=== PATIENT | female | born 1945 | race Caucasian/White ===

== ENCOUNTER 2016-09-08 10:40 | Emergency (ER) | payer MEDICARE ==
[2016-09-08] MEDS ORDERED: Ketorolac Tromethamine 60 MG/2 ML VIAL ONE (10:59)
== END 2016-09-08 11:19 | disposition home or self-care (01) ==
LOC: BURERS 10:42
DX: S39.012A Strain of muscle, fascia and tendon of lower back, initial encounter (principal); F32.9 Major depressive disorder, single episode, unspecified; Z79.82 Long term (current) use of aspirin; W18.30XA Fall on same level, unspecified, initial encounter
CPT/HCPCS: 96372; J1885

== ENCOUNTER 2016-09-09 18:38 | Emergency (ER) | payer MEDICARE ==
[2016-09-09] MEDS ORDERED: HYDROcodone/Acetaminophen 10/325 mg Tablet ONE (18:59)
[2016-09-09] MEDS ORDERED: Ibuprofen 800 MG TAB ONE (18:59)
[2016-09-09] MEDS ORDERED: Orphenadrine Citrate 60 MG/2 ML VIAL ONE (19:46)
[2016-09-09] MEDS ORDERED: predniSONE 20 MG TAB ONE (19:48)
[2016-09-09] MEDS ORDERED: Acetaminophen/Codeine 30-300mg Tablet ONE (19:48)
--- NOTE | 2016-09-10 15:03 | CT ---
CT OF THE LUMBAR SPINE: DATE: 09/09/16. FINDINGS: Spiral CT of the lumbar spine was performed for evaluation of back pain following an injury. Axial slices were acquired, then coronal and sagittal reconstructions were done. There is a very mild compression of the T12 vertebral body. I am not convinced that this is acute. This should be correlated with any site of pain. The patient does have lumbar scoliosis convex rig ht, which is obviously putting some substantial forces upon the lumbar spine. There are very promin ent lateral osteophytes originating from the vertebra at the apex of the curve on the left side. Fi ndings by level follow: T10-T11: Osteophytes, but no acute findings. T11-T12: Irregular end plates, but no acute findings. T12-L1: The T12 vertebra shows a slight anterior compression. As stated above, this may not be acu te. There is no sign of stenosis. L1-L2: Osteophytes, but no acute findings. L2-L3: There is considerable end plate sclerosis of L2 with a far lateral bulge of this disk on the left. Nevertheless, it does not appear to cause neural impingement. There is a mild degree of blaise tral canal stenosis at this level. L3-L4: The disk bulges far laterally at this level as well, but probably does not cause any impinge ment. There is no significant foraminal stenosis. L4-L5: The disk space is narrowed. There is slight crowding of the thecal sac but not really any s ignificant central canal or foraminal stenosis. L5-S1: There is a lateral bulge of this disk which probably contacts the L5 root. Impingement is p ossible of the right L5 root. The sacrum appeared intact. No areas of bony destruction were seen here. The right lobe of the liver posteriorly has a 4 cm cystic lesion in it. It is probably just a simpl e cyst, but an elective ultrasound would be prudent to be certain. Additionally, the collecting sys tem of the right kidney and the right ureter throughout its visualized extent seems mildly prominent in size. This may or may not be significant. The distal ureter is not shown on this study. IMPRESSION: 1. Mild compression of T12, not necessarily new. 2. Lateral disk on the right at L5-S1 that may impinge upon the right L5 root. 3. Severe degenerative disk disease with multilevel locations. End plate sclerosis, particularly i ntense at L2-L3. 4. Slight central canal stenosis at L2-L3 and L3-L4. 5. A 4 cm cystic lesion of the right lobe of the liver. Statistically most likely a simple cyst, b ut an ultrasound is recommended electively to be sure that it is merely that and nothing more. 6. Mild prominence of right ureter and right collecting system. Preliminary report discussed with Dr. Jack at 1925 on 09/09/16. Written temporary report entered at 1930. CODE CR POS: HOME
== END 2016-09-09 20:15 | disposition home or self-care (01) ==
LOC: BURERS 18:38
DX: M51.36 Other intervertebral disc degeneration, lumbar region (principal); M47.816 Spondylosis without myelopathy or radiculopathy, lumbar region; K76.89 Other specified diseases of liver; Z79.82 Long term (current) use of aspirin; Z79.899 Other long term (current) drug therapy
CPT/HCPCS: 72131; 96372; J2360; J7506

== ENCOUNTER 2017-01-09 09:52 | Outpatient (CLI) | payer MEDICARE ==
[2017-01-09 10:21] LABS: #Basophils 0.1 thou/uL (0.0-0.2); #Eosinphils 0.5 thou/uL (0.0-0.7); #Monocytes 0.7 thou/uL (0.11-0.59); #Neutrophils 2.7 thou/uL (1.40-6.50); %Basophils 2.2 % (0.0-1.0); %Eosinophils 8.7 % (0.0-10.0); %Lymphocytes 33.3 % (21.0-51.0); %Monocytes 11.6 % (0.0-10.0); %Neutrophils 44.3 % (42.0-75.0); Hemoglobin 14.3 g/dL (12.0-16.0); Mean Corpuscular HGB CONC 32.9 g/dL (32.0-36.0); Mean Corpuscular Hemoglobin 31.2 pg (27.0-31.0); Mean Corpuscular Volume 94.8 fl (81.0-99.0); Mean Platelet Volume 8.7 fL (7.4-10.4); Platelet Count 213 thou/uL (130-400); RBC Distribution Width 12.9 % (11.5-14.5); Red Blood Cell (RBC) Count 4.57 mill/uL (4.20-5.40)
[2017-01-09 10:39] LABS: ALT (SGPT) 20 U/L (8-55); AST (SGOT) 20 U/L (5-34); Albumin 4.2 g/dL (3.4-4.8); Alkaline Phosphatase 69 U/L (40-150); Anion Gap 16 mmol/L (10-20); BUN (Urea Nitrogen) 13 mg/dL (9.8-20.1); Bilirubin, Total 0.7 mg/dL (0.2-1.2); Calc. Creatinine Clearance 0 mL/min (70-130); Calcium 9.4 mg/dL (7.8-10.44); Carbon Dioxide 24 mmol/L (23-31); Chloride 106 mmol/L (98-107); Estimated GFR-MDRD 70; Globulin 2.8 g/dL (2.4-3.5); Glucose 88 mg/dL (83-110); Potassium 4.7 mmol/L (3.5-5.1); Sodium 141 mmol/L (136-145)
== END 2017-01-09 09:53 | disposition home or self-care (01) ==
LOC: BURLAB 09:52
PROVIDERS: ATTEND Internal Medicine
DX: F32.9 Major depressive disorder, single episode, unspecified (principal)
CPT/HCPCS: 36415; 80053; 85025

== ENCOUNTER 2020-11-13 19:09 | Emergency (ER) | payer MEDICARE ==
[~2020-11-13 19:09] MED LIST: Iopamidol 370 76% 100 ML VIAL ONE
[2020-11-13] MEDS ORDERED: Bisacodyl 10 MG SUPP ONE (19:14)
[2020-11-13] MEDS ORDERED: Ondansetron PF 4 MG/2 ML Vial ONE ×2 (19:44→21:46)
[2020-11-13 19:51] LABS: #Basophils 0.1 thou/uL (0.0-0.2); #Eosinphils 0.1 thou/uL (0.0-0.7); #Lymphocytes 1.3 thou/uL (1.20-3.40); #Monocytes 0.8 thou/uL (0.11-0.59); #Neutrophils 9.6 thou/uL (1.40-6.50); %Basophils 1.1 % (0.0-1.0); %Eosinophils 0.6 % (0.0-10.0); %Lymphocytes 10.7 % (21.0-51.0); %Monocytes 6.4 % (0.0-10.0); %Neutrophils 81.2 % (42.0-75.0); Hemoglobin 14.5 g/dL (12.0-16.0); Mean Corpuscular HGB CONC 33.1 g/dL (32.0-36.0); Mean Corpuscular Volume 99.7 fL (78.0-98.0); Mean Platelet Volume 8.5 fL (7.4-10.4); Platelet Count 222 thou/uL (130-400); RBC Distribution Width 11.5 % (11.5-14.5); Red Blood Cell (RBC) Count 4.39 mill/uL (4.20-5.40); White Blood Cell (WBC) Count 11.8 thou/uL (4.8-10.8)
[2020-11-13 20:06] LABS: ALT (SGPT) 20 U/L (8-55); AST (SGOT) 24 U/L (5-34); Albumin 3.9 g/dL (3.4-4.8); Alkaline Phosphatase 58 U/L (40-110); Anion Gap 18 mmol/L (10-20); BUN (Urea Nitrogen) 17 mg/dL (9.8-20.1); Bilirubin, Total 0.4 mg/dL (0.2-1.2); Calc. Creatinine Clearance 0 mL/min (70-130); Calcium 9.1 mg/dL (7.8-10.44); Carbon Dioxide 23 mmol/L (23-31); Chloride 102 mmol/L (98-107); Globulin 3.4 g/dL (2.4-3.5); Glucose 101 mg/dL (83-110); Potassium 4.3 mmol/L (3.5-5.1); Protein, Total 7.3 g/dL (5.8-8.1); Sodium 139 mmol/L (136-145)
[2020-11-13] MEDS ORDERED: Fleet Enema 133 ML BOT ONE (20:52)
[2020-11-13] MEDS ORDERED: Magnesium Citrate 300 ML BOT ONE (21:10)
[2020-11-13] MEDS ORDERED: Morphine 4 MG/ML VIAL ONE (21:46)
== END 2020-11-13 22:35 | disposition home or self-care (01) ==
LOC: BURERS 19:09
DX: K56.41 Fecal impaction (principal)
CPT/HCPCS: 74177; 80053; 85025; 96374; 96375; 96376; J2270; J2405; Q9967

== ENCOUNTER 2022-12-15 11:12 | Inpatient (IN) | payer MEDICARE ==
[2022-12-15 18:43] VITALS: BMI 28.1
[2022-12-16] MEDS ORDERED: Melatonin 3 MG TAB PO PRN (01:48)
[2022-12-16] MEDS ORDERED: Acetaminophen/Codeine 30-300mg Tablet PO PRN (07:48)
[2022-12-16] MEDS ORDERED: Acetaminophen 325 MG TAB PO PRN (07:51)
[2022-12-16] MEDS ORDERED: Bisacodyl 10 MG SUPP PR PRN (07:51)
[2022-12-16] MEDS ORDERED: Bisacodyl 5 MG TAB PO PRN (07:51)
[2022-12-16] MEDS: FLUoxetine HCl 10 MG CAP PO SCH (09:25)
[2022-12-16] MEDS: Cyanocobalamin (Vitamin B-12) 1,000 MCG TAB PO SCH (09:26)
[2022-12-16] MEDS: Ascorbic Acid 500 mg Chewable Tablet PO SCH (09:27)
[2022-12-16] MEDS: Magnesium Oxide 400 MG TAB PO SCH (09:27)
[2022-12-16] MEDS: Cholecalciferol 1,000 UNITS (25 MCG) TAB PO SCH ×2 (09:28→21:09)
[2022-12-16] MEDS: Bupropion 150 MG XL TAB PO SCH (09:29)
[2022-12-16] MEDS: Raloxifene 60 MG TAB PO SCH (09:30)
[2022-12-16] MEDS: GINKGO BILOBA 120 MG PO SCH (09:30)
[2022-12-16] MEDS: Zinc Sulfate 220 MG CAP PO SCH (09:30)
[2022-12-16] MEDS: Calcium Carbonate 600 MG + Vit D TAB PO SCH ×2 (09:37→21:09)
[2022-12-16] MEDS: clonazePAM 0.5 MG TAB PO PRN ×2 (10:26→21:10)
[2022-12-16] MEDS: Rosuvastatin 10 MG TAB PO SCH (21:06)
[2022-12-16] MEDS: Aspirin Chewable 81 MG TAB PO SCH (21:08)
[2022-12-16] MEDS: Melatonin 3 MG TAB PO PRN (21:10)
[2022-12-17] MEDS: Raloxifene 60 MG TAB PO SCH (09:33)
[2022-12-17] MEDS: clonazePAM 0.5 MG TAB PO PRN ×2 (09:33→20:56)
[2022-12-17] MEDS: Polyethylene Glycol 3350 17 GM Packet PO SCH (09:34)
[2022-12-17] MEDS: Bupropion 150 MG XL TAB PO SCH (09:34)
[2022-12-17] MEDS: Calcium Carbonate 600 MG + Vit D TAB PO SCH ×2 (09:35→20:59)
[2022-12-17] MEDS: Cyanocobalamin (Vitamin B-12) 1,000 MCG TAB PO SCH (09:35)
[2022-12-17] MEDS: FLUoxetine HCl 10 MG CAP PO SCH (09:35)
[2022-12-17] MEDS: Zinc Sulfate 220 MG CAP PO SCH (09:36)
[2022-12-17] MEDS: Magnesium Oxide 400 MG TAB PO SCH (09:36)
[2022-12-17] MEDS: Cholecalciferol 1,000 UNITS (25 MCG) TAB PO SCH ×2 (09:36→20:56)
[2022-12-17] MEDS: Ascorbic Acid 500 mg Chewable Tablet PO SCH (09:36)
[2022-12-17] MEDS: GINKGO BILOBA 120 MG PO SCH (09:37)
[2022-12-17] MEDS: Rosuvastatin 10 MG TAB PO SCH (20:57)
[2022-12-17] MEDS: Aspirin Chewable 81 MG TAB PO SCH (20:59)
[2022-12-17] MEDS: Melatonin 3 MG TAB PO PRN (21:08)
[2022-12-18] MEDS: Raloxifene 60 MG TAB PO SCH (09:57)
[2022-12-18] MEDS: FLUoxetine HCl 10 MG CAP PO SCH (09:58)
[2022-12-18] MEDS: Cholecalciferol 1,000 UNITS (25 MCG) TAB PO SCH ×2 (09:58→20:13)
[2022-12-18] MEDS: Magnesium Oxide 400 MG TAB PO SCH (09:58)
[2022-12-18] MEDS: clonazePAM 0.5 MG TAB PO PRN ×2 (09:59→20:13)
[2022-12-18] MEDS: Ascorbic Acid 500 mg Chewable Tablet PO SCH (09:59)
[2022-12-18] MEDS: Cyanocobalamin (Vitamin B-12) 1,000 MCG TAB PO SCH (09:59)
[2022-12-18] MEDS: Zinc Sulfate 220 MG CAP PO SCH (10:00)
[2022-12-18] MEDS: Calcium Carbonate 600 MG + Vit D TAB PO SCH ×2 (10:01→20:13)
[2022-12-18] MEDS: GINKGO BILOBA 120 MG PO SCH (10:01)
[2022-12-18] MEDS: Bupropion 150 MG XL TAB PO SCH (10:01)
[2022-12-18] MEDS: Polyethylene Glycol 3350 17 GM Packet PO SCH (10:02)
[2022-12-18] MEDS: Aspirin Chewable 81 MG TAB PO SCH (20:12)
[2022-12-18] MEDS: Rosuvastatin 10 MG TAB PO SCH (20:12)
[2022-12-18] MEDS: Melatonin 3 MG TAB PO PRN (20:13)
[2022-12-19] MEDS: Raloxifene 60 MG TAB PO SCH (09:33)
[2022-12-19] MEDS: Calcium Carbonate 600 MG + Vit D TAB PO SCH ×2 (09:34→20:00)
[2022-12-19] MEDS: Bupropion 150 MG XL TAB PO SCH (09:34)
[2022-12-19] MEDS: Cyanocobalamin (Vitamin B-12) 1,000 MCG TAB PO SCH (09:34)
[2022-12-19] MEDS: Cholecalciferol 1,000 UNITS (25 MCG) TAB PO SCH ×2 (09:34→20:00)
[2022-12-19] MEDS: FLUoxetine HCl 10 MG CAP PO SCH (09:35)
[2022-12-19] MEDS: Ascorbic Acid 500 mg Chewable Tablet PO SCH (09:36)
[2022-12-19] MEDS: Zinc Sulfate 220 MG CAP PO SCH (09:36)
[2022-12-19] MEDS: Polyethylene Glycol 3350 17 GM Packet PO SCH (09:36)
[2022-12-19] MEDS: Magnesium Oxide 400 MG TAB PO SCH (09:36)
[2022-12-19] MEDS: GINKGO BILOBA 120 MG PO SCH (09:36)
[2022-12-19] MEDS: clonazePAM 0.5 MG TAB PO PRN ×2 (09:43→20:00)
[2022-12-19] MEDS: Rosuvastatin 10 MG TAB PO SCH (19:59)
[2022-12-19] MEDS: Aspirin Chewable 81 MG TAB PO SCH (20:00)
[2022-12-19] MEDS: Melatonin 3 MG TAB PO PRN (20:00)
[2022-12-20] MEDS: Polyethylene Glycol 3350 17 GM Packet PO SCH (08:46)
[2022-12-20] MEDS: Raloxifene 60 MG TAB PO SCH (08:46)
[2022-12-20] MEDS: Cholecalciferol 1,000 UNITS (25 MCG) TAB PO SCH ×2 (08:47→20:13)
[2022-12-20] MEDS: FLUoxetine HCl 10 MG CAP PO SCH (08:48)
[2022-12-20] MEDS: Bupropion 150 MG XL TAB PO SCH (08:48)
[2022-12-20] MEDS: Cyanocobalamin (Vitamin B-12) 1,000 MCG TAB PO SCH (08:49)
[2022-12-20] MEDS: Ascorbic Acid 500 mg Chewable Tablet PO SCH (08:50)
[2022-12-20] MEDS: Zinc Sulfate 220 MG CAP PO SCH (08:50)
[2022-12-20] MEDS: Magnesium Oxide 400 MG TAB PO SCH (08:51)
[2022-12-20] MEDS: Calcium Carbonate 600 MG + Vit D TAB PO SCH ×2 (08:52→20:13)
[2022-12-20] MEDS: GINKGO BILOBA 120 MG PO SCH (08:56)
[2022-12-20] MEDS: Rosuvastatin 10 MG TAB PO SCH (20:10)
[2022-12-20] MEDS: Aspirin Chewable 81 MG TAB PO SCH (20:10)
[2022-12-20] MEDS: Melatonin 3 MG TAB PO PRN (20:12)
[2022-12-20] MEDS: clonazePAM 0.5 MG TAB PO PRN (20:13)
[2022-12-21] MEDS: Cyanocobalamin (Vitamin B-12) 1,000 MCG TAB PO SCH (08:40)
[2022-12-21] MEDS: Bupropion 150 MG XL TAB PO SCH (08:40)
[2022-12-21] MEDS: Cholecalciferol 1,000 UNITS (25 MCG) TAB PO SCH ×2 (08:40→20:11)
[2022-12-21] MEDS: Polyethylene Glycol 3350 17 GM Packet PO SCH (08:40)
[2022-12-21] MEDS: FLUoxetine HCl 10 MG CAP PO SCH (08:41)
[2022-12-21] MEDS: Magnesium Oxide 400 MG TAB PO SCH (08:42)
[2022-12-21] MEDS: Zinc Sulfate 220 MG CAP PO SCH (08:42)
[2022-12-21] MEDS: Ascorbic Acid 500 mg Chewable Tablet PO SCH (08:42)
[2022-12-21] MEDS: Calcium Carbonate 600 MG + Vit D TAB PO SCH ×2 (08:43→20:10)
[2022-12-21] MEDS: GINKGO BILOBA 120 MG PO SCH (08:44)
[2022-12-21] MEDS: Raloxifene 60 MG TAB PO SCH (09:22)
[2022-12-21] MEDS: clonazePAM 0.5 MG TAB PO PRN ×2 (09:27→20:11)
[2022-12-21] MEDS: Melatonin 3 MG TAB PO PRN (20:10)
[2022-12-21] MEDS: Aspirin Chewable 81 MG TAB PO SCH (20:11)
[2022-12-21] MEDS: Rosuvastatin 10 MG TAB PO SCH (20:11)
[2022-12-22] MEDS: FLUoxetine HCl 10 MG CAP PO SCH (08:22)
[2022-12-22] MEDS: Cyanocobalamin (Vitamin B-12) 1,000 MCG TAB PO SCH (08:22)
[2022-12-22] MEDS: Polyethylene Glycol 3350 17 GM Packet PO SCH (08:22)
[2022-12-22] MEDS: Calcium Carbonate 600 MG + Vit D TAB PO SCH ×2 (08:23→20:18)
[2022-12-22] MEDS: Ascorbic Acid 500 mg Chewable Tablet PO SCH (08:23)
[2022-12-22] MEDS: Magnesium Oxide 400 MG TAB PO SCH (08:23)
[2022-12-22] MEDS: Zinc Sulfate 220 MG CAP PO SCH (08:23)
[2022-12-22] MEDS: Bupropion 150 MG XL TAB PO SCH (08:23)
[2022-12-22] MEDS: Raloxifene 60 MG TAB PO SCH (08:23)
[2022-12-22] MEDS: Cholecalciferol 1,000 UNITS (25 MCG) TAB PO SCH ×2 (08:23→20:17)
[2022-12-22] MEDS: GINKGO BILOBA 120 MG PO SCH (08:24)
[2022-12-22] MEDS: Melatonin 3 MG TAB PO PRN (20:17)
[2022-12-22] MEDS: clonazePAM 0.5 MG TAB PO PRN (20:17)
[2022-12-22] MEDS: Aspirin Chewable 81 MG TAB PO SCH (20:18)
[2022-12-22] MEDS: Rosuvastatin 10 MG TAB PO SCH (20:18)
[2022-12-23] MEDS: FLUoxetine HCl 10 MG CAP PO SCH (08:42)
[2022-12-23] MEDS: Cholecalciferol 1,000 UNITS (25 MCG) TAB PO SCH ×2 (08:42→20:07)
[2022-12-23] MEDS: Polyethylene Glycol 3350 17 GM Packet PO SCH (08:42)
[2022-12-23] MEDS: Cyanocobalamin (Vitamin B-12) 1,000 MCG TAB PO SCH (08:43)
[2022-12-23] MEDS: Calcium Carbonate 600 MG + Vit D TAB PO SCH ×2 (08:43→20:06)
[2022-12-23] MEDS: Ascorbic Acid 500 mg Chewable Tablet PO SCH (08:44)
[2022-12-23] MEDS: Zinc Sulfate 220 MG CAP PO SCH (08:44)
[2022-12-23] MEDS: Magnesium Oxide 400 MG TAB PO SCH (08:44)
[2022-12-23] MEDS: Bupropion 150 MG XL TAB PO SCH (08:44)
[2022-12-23] MEDS: GINKGO BILOBA 120 MG PO SCH (08:46)
[2022-12-23] MEDS: Raloxifene 60 MG TAB PO SCH (08:47)
[2022-12-23] MEDS: Rosuvastatin 10 MG TAB PO SCH (20:06)
[2022-12-23] MEDS: clonazePAM 0.5 MG TAB PO PRN (20:07)
[2022-12-23] MEDS: Melatonin 3 MG TAB PO PRN (20:07)
[2022-12-23] MEDS: Aspirin Chewable 81 MG TAB PO SCH (20:07)
[2022-12-24] MEDS: Magnesium Oxide 400 MG TAB PO SCH (08:26)
[2022-12-24] MEDS: Polyethylene Glycol 3350 17 GM Packet PO SCH (08:26)
[2022-12-24] MEDS: FLUoxetine HCl 10 MG CAP PO SCH (08:29)
[2022-12-24] MEDS: Cyanocobalamin (Vitamin B-12) 1,000 MCG TAB PO SCH (08:29)
[2022-12-24] MEDS: Cholecalciferol 1,000 UNITS (25 MCG) TAB PO SCH ×2 (08:30→20:26)
[2022-12-24] MEDS: Bupropion 150 MG XL TAB PO SCH (08:31)
[2022-12-24] MEDS: Raloxifene 60 MG TAB PO SCH (08:31)
[2022-12-24] MEDS: Zinc Sulfate 220 MG CAP PO SCH (08:31)
[2022-12-24] MEDS: Ascorbic Acid 500 mg Chewable Tablet PO SCH (08:32)
[2022-12-24] MEDS: Calcium Carbonate 600 MG + Vit D TAB PO SCH ×2 (08:33→20:27)
[2022-12-24] MEDS: GINKGO BILOBA 120 MG PO SCH (08:34)
[2022-12-24] MEDS: Rosuvastatin 10 MG TAB PO SCH (20:22)
[2022-12-24] MEDS: Aspirin Chewable 81 MG TAB PO SCH (20:23)
[2022-12-24] MEDS: Melatonin 3 MG TAB PO PRN (20:24)
[2022-12-24] MEDS: clonazePAM 0.5 MG TAB PO PRN (20:25)
[2022-12-25] MEDS: Cyanocobalamin (Vitamin B-12) 1,000 MCG TAB PO SCH (09:50)
[2022-12-25] MEDS: Ascorbic Acid 500 mg Chewable Tablet PO SCH (09:50)
[2022-12-25] MEDS: clonazePAM 0.5 MG TAB PO PRN ×2 (09:50→20:18)
[2022-12-25] MEDS: Bupropion 150 MG XL TAB PO SCH (09:50)
[2022-12-25] MEDS: Zinc Sulfate 220 MG CAP PO SCH (09:51)
[2022-12-25] MEDS: Cholecalciferol 1,000 UNITS (25 MCG) TAB PO SCH ×2 (09:51→20:18)
[2022-12-25] MEDS: Raloxifene 60 MG TAB PO SCH (09:51)
[2022-12-25] MEDS: FLUoxetine HCl 10 MG CAP PO SCH (09:51)
[2022-12-25] MEDS: Magnesium Oxide 400 MG TAB PO SCH (09:52)
[2022-12-25] MEDS: GINKGO BILOBA 120 MG PO SCH (09:52)
[2022-12-25] MEDS: Calcium Carbonate 600 MG + Vit D TAB PO SCH ×2 (09:52→20:19)
[2022-12-25] MEDS: Polyethylene Glycol 3350 17 GM Packet PO SCH (09:52)
[2022-12-25] MEDS: Aspirin Chewable 81 MG TAB PO SCH (20:18)
[2022-12-25] MEDS: Rosuvastatin 10 MG TAB PO SCH (20:19)
[2022-12-25] MEDS: Melatonin 3 MG TAB PO PRN (20:19)
[2022-12-26] MEDS: Cholecalciferol 1,000 UNITS (25 MCG) TAB PO SCH ×2 (09:29→20:05)
[2022-12-26] MEDS: Ascorbic Acid 500 mg Chewable Tablet PO SCH (09:29)
[2022-12-26] MEDS: FLUoxetine HCl 10 MG CAP PO SCH (09:29)
[2022-12-26] MEDS: Cyanocobalamin (Vitamin B-12) 1,000 MCG TAB PO SCH (09:29)
[2022-12-26] MEDS: Magnesium Oxide 400 MG TAB PO SCH (09:30)
[2022-12-26] MEDS: Bupropion 150 MG XL TAB PO SCH (09:30)
[2022-12-26] MEDS: Raloxifene 60 MG TAB PO SCH (09:31)
[2022-12-26] MEDS: Zinc Sulfate 220 MG CAP PO SCH (09:31)
[2022-12-26] MEDS: GINKGO BILOBA 120 MG PO SCH (09:31)
[2022-12-26] MEDS: Polyethylene Glycol 3350 17 GM Packet PO SCH (09:31)
[2022-12-26] MEDS: Calcium Carbonate 600 MG + Vit D TAB PO SCH ×2 (09:31→20:06)
[2022-12-26] MEDS: clonazePAM 0.5 MG TAB PO PRN ×2 (09:46→20:06)
[2022-12-26] MEDS ORDERED: Acetaminophen 325 MG TAB PO PRN (09:57)
[2022-12-26] MEDS: Rosuvastatin 10 MG TAB PO SCH (20:05)
[2022-12-26] MEDS: Aspirin Chewable 81 MG TAB PO SCH (20:06)
[2022-12-26] MEDS: Melatonin 3 MG TAB PO PRN (20:06)
[2022-12-27] MEDS: Cholecalciferol 1,000 UNITS (25 MCG) TAB PO SCH ×2 (08:53→20:07)
[2022-12-27] MEDS: Cyanocobalamin (Vitamin B-12) 1,000 MCG TAB PO SCH (08:53)
[2022-12-27] MEDS: Bupropion 150 MG XL TAB PO SCH (08:53)
[2022-12-27] MEDS: FLUoxetine HCl 10 MG CAP PO SCH (08:54)
[2022-12-27] MEDS: Raloxifene 60 MG TAB PO SCH (08:54)
[2022-12-27] MEDS: Magnesium Oxide 400 MG TAB PO SCH (08:54)
[2022-12-27] MEDS: Zinc Sulfate 220 MG CAP PO SCH (08:54)
[2022-12-27] MEDS: Ascorbic Acid 500 mg Chewable Tablet PO SCH (08:54)
[2022-12-27] MEDS: Calcium Carbonate 600 MG + Vit D TAB PO SCH ×2 (08:54→20:08)
[2022-12-27] MEDS: Polyethylene Glycol 3350 17 GM Packet PO SCH (08:55)
[2022-12-27] MEDS: Melatonin 3 MG TAB PO PRN (20:07)
[2022-12-27] MEDS: Aspirin Chewable 81 MG TAB PO SCH (20:08)
[2022-12-27] MEDS: Rosuvastatin 10 MG TAB PO SCH (20:08)
[2022-12-27] MEDS: clonazePAM 0.5 MG TAB PO PRN (20:08)
[2022-12-28] MEDS: FLUoxetine HCl 10 MG CAP PO SCH (08:57)
[2022-12-28] MEDS: Ascorbic Acid 500 mg Chewable Tablet PO SCH (08:58)
[2022-12-28] MEDS: Cholecalciferol 1,000 UNITS (25 MCG) TAB PO SCH ×2 (08:59→21:06)
[2022-12-28] MEDS: Cyanocobalamin (Vitamin B-12) 1,000 MCG TAB PO SCH (08:59)
[2022-12-28] MEDS: Bupropion 150 MG XL TAB PO SCH (09:00)
[2022-12-28] MEDS: Raloxifene 60 MG TAB PO SCH (09:00)
[2022-12-28] MEDS: Magnesium Oxide 400 MG TAB PO SCH (09:01)
[2022-12-28] MEDS: Zinc Sulfate 220 MG CAP PO SCH (09:01)
[2022-12-28] MEDS: Calcium Carbonate 600 MG + Vit D TAB PO SCH ×2 (09:02→21:07)
[2022-12-28] MEDS: Polyethylene Glycol 3350 17 GM Packet PO SCH (09:05)
[2022-12-28] MEDS: Rosuvastatin 10 MG TAB PO SCH (21:04)
[2022-12-28] MEDS: clonazePAM 0.5 MG TAB PO PRN (21:05)
[2022-12-28] MEDS: Aspirin Chewable 81 MG TAB PO SCH (21:06)
[2022-12-28] MEDS: Melatonin 3 MG TAB PO PRN (21:06)
[2022-12-29] MEDS: Cyanocobalamin (Vitamin B-12) 1,000 MCG TAB PO SCH (08:36)
[2022-12-29] MEDS: FLUoxetine HCl 10 MG CAP PO SCH (08:36)
[2022-12-29] MEDS: Raloxifene 60 MG TAB PO SCH (08:36)
[2022-12-29] MEDS: Cholecalciferol 1,000 UNITS (25 MCG) TAB PO SCH ×2 (08:37→20:33)
[2022-12-29] MEDS: Zinc Sulfate 220 MG CAP PO SCH (08:38)
[2022-12-29] MEDS: Bupropion 150 MG XL TAB PO SCH (08:39)
[2022-12-29] MEDS: Magnesium Oxide 400 MG TAB PO SCH (08:39)
[2022-12-29] MEDS: Ascorbic Acid 500 mg Chewable Tablet PO SCH (08:39)
[2022-12-29] MEDS: Polyethylene Glycol 3350 17 GM Packet PO SCH (08:40)
[2022-12-29] MEDS: Calcium Carbonate 600 MG + Vit D TAB PO SCH ×2 (08:40→20:33)
[2022-12-29] MEDS: Rosuvastatin 10 MG TAB PO SCH (20:33)
[2022-12-29] MEDS: Aspirin Chewable 81 MG TAB PO SCH (20:34)
[2022-12-29] MEDS: Melatonin 3 MG TAB PO PRN (20:37)
[2022-12-29] MEDS: clonazePAM 0.5 MG TAB PO PRN (20:37)
[2022-12-30 05:55] VITALS: BP 118/75; TEMP 97.9
[2022-12-30] MEDS: FLUoxetine HCl 10 MG CAP PO SCH (08:53)
[2022-12-30] MEDS: Bupropion 150 MG XL TAB PO SCH (08:53)
[2022-12-30] MEDS: Cyanocobalamin (Vitamin B-12) 1,000 MCG TAB PO SCH (08:54)
[2022-12-30] MEDS: Ascorbic Acid 500 mg Chewable Tablet PO SCH (08:54)
[2022-12-30] MEDS: Magnesium Oxide 400 MG TAB PO SCH (08:55)
[2022-12-30] MEDS: Cholecalciferol 1,000 UNITS (25 MCG) TAB PO SCH (08:55)
[2022-12-30] MEDS: Calcium Carbonate 600 MG + Vit D TAB PO SCH (08:56)
[2022-12-30] MEDS: Raloxifene 60 MG TAB PO SCH (08:56)
[2022-12-30] MEDS: Zinc Sulfate 220 MG CAP PO SCH (08:56)
[2022-12-30] MEDS: Polyethylene Glycol 3350 17 GM Packet PO SCH (08:57)
[2022-12-30] MEDS: clonazePAM 0.5 MG TAB PO PRN (08:57)
== END 2022-12-30 11:12 | disposition home health service (06) | DRG 948 ==
LOC: BURMED 18:00
PROVIDERS: ADMIT Family Medicine; ATTEND Family Medicine
DX: R53.1 Weakness (principal); G89.29 Other chronic pain; M54.50 Low back pain, unspecified; Z87.440 Personal history of urinary (tract) infections; E78.5 Hyperlipidemia, unspecified; Z79.82 Long term (current) use of aspirin; Z79.899 Other long term (current) drug therapy; Z88.8 Allergy status to other drugs, medicaments and biological substances; F32.9 Major depressive disorder, single episode, unspecified; F41.1 Generalized anxiety disorder; K52.9 Noninfective gastroenteritis and colitis, unspecified

== ENCOUNTER 2023-04-30 15:12 | Emergency (ER) | payer MEDICARE ==
[2023-04-30 15:56] LABS: #Basophils 0.1 thou/uL (0.0-0.2); #Eosinphils 0.1 thou/uL (0.0-0.7); #Lymphocytes 1.9 thou/uL (1.20-3.40); #Monocytes 0.7 thou/uL (0.11-0.59); #Neutrophils 4.2 thou/uL (1.40-6.50); %Basophils 1.1 % (0.0-1.0); %Eosinophils 1.7 % (0.0-10.0); %Lymphocytes 26.4 % (21.0-51.0); %Monocytes 10.3 % (0.0-10.0); %Neutrophils 60.4 % (42.0-75.0); Hematocrit 40.7 % (36.0-47.0); Hemoglobin 13.1 g/dL (12.0-16.0); Mean Corpuscular HGB CONC 32.3 g/dL (32.0-36.0); Mean Corpuscular Hemoglobin 30.6 pg (27.0-31.0); Mean Corpuscular Volume 94.7 fl (78.0-98.0); Mean Platelet Volume 9.1 fL (7.4-10.4); Platelet Count 222 10x3/uL (130-400)
[2023-04-30 16:11] LABS: ALT (SGPT) 21 U/L (8-55); AST (SGOT) 22 U/L (5-34); Albumin 3.9 g/dL (3.4-4.8); Alkaline Phosphatase 83 U/L (40-110); Anion Gap 13 mmol/L (10-20); BUN (Urea Nitrogen) 21 mg/dL (9.8-20.1); Bilirubin, Total 0.3 mg/dL (0.2-1.2); Calc. Creatinine Clearance 0 mL/min (70-130); Carbon Dioxide 24 mmol/L (23-31); Chloride 108 mmol/L (98-107); Estimated GFR 75; Globulin 3.1 g/dL (2.4-3.5); Glucose 90 mg/dL (83-110); Potassium 4.1 mmol/L (3.5-5.1); Sodium 141 mmol/L (136-145)
== END 2023-04-30 17:17 | disposition home or self-care (01) ==
LOC: BURERS 15:12
DX: R60.0 Localized edema (principal)
CPT/HCPCS: 71046; 80053; 83880; 85025; 85379